=== PATIENT | male | born 1945 | race American Indian/Alaskan Native ===

== ENCOUNTER 2018-05-29 21:20 | Emergency (ER) | payer OTHER, MEDICARE ==
[2018-05-29] MEDS ORDERED: TYLENOL ONE (22:27)
[2018-05-29] MEDS ORDERED: TYLENOL PO ONE (22:27)
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
[2018-05-30 02:43] VITALS: BP 149/62
== END 2018-05-30 02:43 | disposition home or self-care (01) ==
LOC: ED 21:20
DX: S46.912A Strain of unspecified muscle, fascia and tendon at shoulder and upper arm level, left arm, initial encounter (principal); I10 Essential (primary) hypertension; I25.10 Atherosclerotic heart disease of native coronary artery without angina pectoris; I48.91 Unspecified atrial fibrillation; E78.00 Pure hypercholesterolemia, unspecified; Z90.89 Acquired absence of other organs; V49.49XA Driver injured in collision with other motor vehicles in traffic accident, initial encounter; Y93.89 Activity, other specified; Y92.89 Other specified places as the place of occurrence of the external cause; Y99.8 Other external cause status
CPT/HCPCS: 99283